=== PATIENT | female | born 1980 | race American Indian/Alaskan Native ===

== ENCOUNTER 2018-01-13 20:41 | Emergency (ER) | payer OTHER ==
[2018-01-13 21:23] VITALS: BP 105/66
[2018-01-13] MEDS ORDERED: TYLENOL PO ONE (21:29)
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
[2018-01-14] MEDS ORDERED: ULTRAM PO ONE (02:17)
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
== END 2018-01-14 02:46 | disposition home or self-care (01) ==
LOC: ED 20:41
DX: S16.1XXA Strain of muscle, fascia and tendon at neck level, initial encounter (principal); Z87.891 Personal history of nicotine dependence; Z79.899 Other long term (current) drug therapy; V49.19XA Passenger injured in collision with other motor vehicles in nontraffic accident, initial encounter; Y93.89 Activity, other specified; Y99.8 Other external cause status; Y92.488 Other paved roadways as the place of occurrence of the external cause
CPT/HCPCS: 72125; 99283